=== PATIENT | female | born 1935 | race Caucasian/White ===

== ENCOUNTER 2019-04-18 19:42 | Inpatient (IN) | payer MEDICARE ==
[~2019-04-18] VITALS: Ht 167.6 cm; Wt 59.0 kg
[~2019-04-18 19:42] MED LIST: ASPIR 8181 MG PO; KOMBIGLYZE XR1 EACH PO; LEVOTHYROXINE25 MCG PO; LIPITOR10 MG PO; PROPAFENONE HC225 MG PO
--- NOTE | 2019-04-18 20:40 | NUR ---
DR. REAVES AND Inga RODRÍGUEZ RN NOTIFIED AND AWARE OF CRITICAL LAB VALUE; POTASSIUM 7.2.
--- NOTE | 2019-04-18 20:57 | Diagnostic Imaging Report ---
EXAMINATION: CHEST SINGLE (PORTABLE) History: Weakness. COMPARISON: 08/15/2013. FINDINGS: TUBES and LINES: None. LUNGS: Patient rotation on the film. Biapical pleural-parenchymal densities, right greater than left suggestive of scarring. No focal consolidation. PLEURA: No pleural effusion or pneumothorax. HEART AND MEDIASTINUM: The cardiomediastinal silhouette is unremarkable. There are atherosclerotic calcifications within the aorta. BONES AND SOFT TISSUES: No acute osseous lesion. Soft tissues are unremarkable. UPPER ABDOMEN: No free air under the diaphragm. IMPRESSION: No acute thoracic abnormality. Signed by: Dr. Nyasia Cooper M.D. on 04/18/2019 8:54 PM
[2019-04-18 22:08] LABS: BASOPHILS # (AUTO) 0.1 (0.0-0.1); BASOPHILS % 0.4 % (0.0-1.0); EOSINOPHILS % 0.1 % (0.0-6.0); HEMATOCRIT 38.8 % (34.2-44.1); HEMOGLOBIN 12.7 g/dL (12.0-16.0); LYMPHOCYTES # (AUTO) 1.5 (1.0-3.2); LYMPHOCYTES % 7.8 % (18.0-39.1); MEAN CORPUSCULAR HEMOGLOBIN 30.3 pg (28-32); MEAN CORPUSCULAR HGB CONC 32.7 g/dL (31-35); MEAN CORPUSCULAR VOLUME 92.6 fL (81-99); MONOCYTES # (AUTO) 1.5 (0.2-0.8); MONOCYTES % 7.7 % (4.4-11.3); NEUTROPHILS # (AUTO) 15.7 (2.1-6.9); NEUTROPHILS % 82.9 % (38.7-80.0); PLATELET COUNT 538 x10e3/uL (140-360); RED BLOOD COUNT 4.19 x10e6/uL (3.6-5.1); RED CELL DISTRIBUTION WIDTH 13.2 % (11.7-14.4)
[2019-04-18 22:26] LABS: ALBUMIN 2.1 g/dL (3.5-5.0); ALBUMIN/GLOBULIN RATIO 0.4 (0.8-2.0); ANION GAP 16.2 mmol/L (8-16); CALCIUM 9.7 mg/dL (8.4-10.2); CREATININE, SERUM 2.32 mg/dL (0.57-1.11)
[2019-04-18 22:32] LABS: CREATINE KINASE MB 4.5 ng/mL (0-5.0)
[2019-04-18 22:36] LABS: BILIRUBIN,URINE NEGATIVE (NEGATIVE); CLARITY,URINE CLOUDY (CLEAR); COLOR,URINE ORANGE (YELLOW); KETONES,URINE NEGATIVE (NEGATIVE); LEUKOCYTE ESTERASE ,URINE MODERATE (NEGATIVE); NITRITE,URINE POSITIVE (NEGATIVE); PROTEIN,URINE DIPSTICK 1+ (NEGATIVE); URINE UROBILINOGEN 0.2 mg/dL (0.2 - 1)
[2019-04-18 22:41] LABS: POTASSIUM 7.2 mmol/L (3.5-5.1)
[2019-04-18 22:52] LABS: BACTERIA,URINE MANY /HPF; EPITHELIAL CELLS,URINE FEW /LPF; WBC,URINE (MAN) >50 /HPF (0-5)
[2019-04-18] MEDS ORDERED: SODIUM BICARBONATE 8.4% INJ 50 ML SYR IV STA (22:55)
[2019-04-18] MEDS ORDERED: CALCIUM CHLORIDE 10% 1.36 MEQ/ML 10ML SYR IV STA (22:55)
[2019-04-18] MEDS ORDERED: SODIUM CHLORIDE 0.9% 1000ML 1,000 ML IV SCH ×3 (23:00→23:30)
[2019-04-18] MEDS ORDERED: SOD POLYSTYRENE SULFONATE SUSP 15 GM/60 ML BTL PO ONE (23:00)
[2019-04-18] MEDS ORDERED: ONDANSETRON HCL INJ 2MG/ML 2ML 2 MG/ML VIAL IV PRN (23:30)
--- OUTSIDE RECORDS SUMMARY | 2019-04-18 23:37 | XMS REPORT ---
Author Author [facility] Address Unknown Phone Unavailable Care Team Providers Care Oncology Radiation Physician Name Role Phone Vicky REAVES Unavailable Unavailable Problems This patient has no known problems. Allergies, Adverse Reactions, Alerts This patient has no known allergies or adverse reactions. Medications This patient has no known medications. Results Test Description Test Time Test Comments Text Results Atomic Results Result Comments CHEST SINGLE (PORTABLE) 2019-04-18 20:50:00 [place] [address] Patient Name: ROCHELLE EMERSON MR #: [id number] : 1935 Age/Sex: 83/F Req #: [id number] Adm Physician: Ordered by: PAULA REAVES MD Report #: [id number] Location: ER Room/Bed: Procedure: [id number] DX/CHEST SINGLE (PORTABLE) Exam Date: 04/18/19 Exam Time: 2039 REPORT STATUS: Signed EXAMINATION: CHEST SINGLE (PORTABLE) History: Weakness. COMPARISON: 08/15/2013. FINDINGS: TUBES and LINES: None. LUNGS: Patient rotation on the film. Biapical pleural-parenchymal densities, right greater than left suggestive of scarring. No focal consolidation. PLEURA: No pleural effusion or pneumothorax. HEART AND MEDIASTINUM: The cardiomediastinal silhouette is unremarkable. There are atherosclerotic calcifications within the aorta. BONES AND SOFT TISSUES: No acute osseous lesion. Soft tissues are unremarkable. UPPER ABDOMEN: No free air under the diaphragm. IMPRESSION: No acute thoracic abnormality. Signed by: Dr. Nyasia Lovell M.D. on 04/18/2019 8:54 PM Dictated By: MARI LOVELL MD, MD 53 Transcribed By: PATRICIA on 04/18/192053 COPY TO: PAULA REAVES MD
[2019-04-18] MEDS ORDERED: SODIUM CHLORIDE 0.9% 50ML 50 ML ONE (23:54)
[2019-04-19] VITALS (10 sets, daily range): BP systolic 88–147; BP diastolic 51–78
[2019-04-19] MEDS: CEFTRIAXONE SOD 1 GM/NS 50 ML 50 ML IV SCH ×2 (02:39→23:31)
[2019-04-19 06:21] LABS: BASOPHILS # (AUTO) 0.1 (0.0-0.1); BASOPHILS % 0.4 % (0.0-1.0); EOSINOPHILS % 0.1 % (0.0-6.0); HEMATOCRIT 33.9 % (34.2-44.1); HEMOGLOBIN 10.9 g/dL (12.0-16.0); LYMPHOCYTES # (AUTO) 1.3 (1.0-3.2); LYMPHOCYTES % 8.5 % (18.0-39.1); MEAN CORPUSCULAR HEMOGLOBIN 30.2 pg (28-32); MEAN CORPUSCULAR HGB CONC 32.2 g/dL (31-35); MEAN CORPUSCULAR VOLUME 93.9 fL (81-99); MONOCYTES # (AUTO) 1.4 (0.2-0.8); MONOCYTES % 8.8 % (4.4-11.3); NEUTROPHILS # (AUTO) 12.6 (2.1-6.9); NEUTROPHILS % 80.8 % (38.7-80.0); PLATELET COUNT 510 x10e3/uL (140-360); RED BLOOD COUNT 3.61 x10e6/uL (3.6-5.1); RED CELL DISTRIBUTION WIDTH 13.2 % (11.7-14.4)
[2019-04-19 06:57] LABS: ALBUMIN 1.9 g/dL (3.5-5.0); ALBUMIN/GLOBULIN RATIO 0.4 (0.8-2.0); CALCIUM 10.1 mg/dL (8.4-10.2); CREATININE, SERUM 1.68 mg/dL (0.57-1.11)
[2019-04-19] MEDS ORDERED: SODIUM CHLORIDE 0.45% 1,000 ML IV ONE ×2 (08:30→09:45)
[2019-04-19] MEDS ORDERED: LEVOTHYROXINE50 MCG PO (10:38)
[2019-04-19] MEDS ORDERED: PHENAZOPYRIDIN100 MG PO (10:38)
[2019-04-19] MEDS ORDERED: PROPAFENONE HC325 MG PO (10:39)
[2019-04-19] MEDS ORDERED: METFORMIN HCL500 M2 PO (10:40)
--- NOTE | 2019-04-19 15:37 | Consultation ---
DATE OF CONSULTATION: 04/19/2019 Renal Consultation REASON FOR CONSULTATION: Acute kidney injury and hyperkalemia. HISTORY OF PRESENT ILLNESS: An 83-year-old female with history of diabetes, and frequent urinary tract infections, who was brought to [facility] on 04/18/2019 for severe weakness to the point where she is unable to ambulate. The patient was doing well until approximately 3 months ago when she developed some frequent urinary tract infections. She was sent to see a urologist and underwent cystoscopy approximately 3 weeks ago. At that time, the patient was on Macrobid to prevent any further urinary tract infections. The patient approximately 2 weeks ago, developed weakness, decrease in appetite, dizziness, and she had difficulty walking. The patient's symptoms got so severe that she eventually presented to the emergency room. When she arrived, she was found to have acute kidney injury, pyuria, and hyperkalemia. The patient was started on IV fluids, received Kayexalate, started on antibiotics, admitted and Nephrology consultation was called. REVIEW OF SYSTEMS: A 12-point review of systems completed. All systems negative other than mentioned in the HPI. PAST MEDICAL HISTORY: 1. Diabetes. 2. Irregular heart beat. 3. Frequent urinary tract infections. PAST SURGICAL HISTORY: 1. Total abdominal hysterectomy. 2. Appendectomy. 3. Cystoscopy. SOCIAL HISTORY: No tobacco. No alcohol. No IV drugs. FAMILY HISTORY: No family history of kidney disease. ALLERGIES: DOXYCYCLINE, IODINE, AND INSULIN. CURRENT MEDICATIONS: See list. PHYSICAL EXAMINATION: VITAL SIGNS: Blood pressure 147/64, pulse 92, respiratory rate 20, and temperature 98. GENERAL: No apparent distress. HEENT: Oropharynx is clear. No scleral icterus. No peripheral edema. NECK: Supple. No elevation of jugular venous pressure. No lymphadenopathy. CHEST: Clear to auscultation anteriorly bilaterally. CARDIOVASCULAR: Regular rhythm. No murmurs or rubs. ABDOMEN: Soft. Positive bowel sounds. No tenderness. No rebound. EXTREMITIES: No edema. No clubbing. No cyanosis. SKIN: Warm. LABORATORY DATA: Sodium 130 from 123, potassium 5 down from 7.2, chloride 100, CO2 of 19, BUN 57 down from 70, creatinine 1.68 down from 2.32, calcium 10.1, and albumin 1.9. White count 15, hemoglobin 10.9, hematocrit 33.9, and platelets 510. Urine culture pending. Urinalysis greater than 50 WBCs, many bacteria. IMAGING: Chest x-ray clear. ASSESSMENT AND PLAN: 1. Acute kidney injury suspect secondary to volume depletion. Continue with IV fluids. 2. Hyperkalemia secondary to acute kidney injury, treated medically and improved. 3. Hyponatremia secondary to above. We will change to half NS as do not want to correct sodium too quickly. 4. Nausea, vomiting, and weight loss due to urinary tract infection and possibly side effects from Macrobid. 5. Volume depletion on exam. IV fluids as above. MD HERNESTO Shaikh/CAROL /[id number]
[2019-04-19] MEDS: PANTOPRAZOLE SOD 40 MG TABEC PO SCH (16:38)
[2019-04-19] MEDS: ACETAMINOPHEN 325 MG TAB PO PRN (16:38)
--- NOTE | 2019-04-19 16:47 | NUR ---
Nutrition Intervention Note RD Recommendation(s) for Physician: -Continue current diet per MD. -Recommend Glucerna BID. -Pt meets criteria for MODERATE protein calorie malnutrition. Plan of Care: RD following, monitoring for tolerance and adequacy. Glucerna BID. Nutrition reason for involvement: MST-3 RD Assessment 04/19: 83 YOF admitted for acute renal failure with PMH listed below. Pt was seen resting in bed with family at bedside. Pt reported she has not eaten much in the past 3 weeks and that her UBW is 114 lbs and she has lost about 10 lbs. Pt is currently 100 lbs suggesting she has had a 12% weight loss within 3 weeks which is significant. Pt reported she is allergic to green beans, and peanuts documented this within her EMR, pt reported no other allergies and stated she can self select from the menu, reported this to nurse. Also offered ONS to help provide her with additional calories and protein. Pt denied N/V, had a BM and denied chewing or swallowing as well. Per MD note- and weight loss due to urinary tract infection and possibly side effects from Macrobid. Will continue to monitor. Principal Problems/Diagnoses: Acute renal failure, dehydration PMH: diabetes, and frequent urinary tract infections, GI: Abd: flat; soft LBM: 04/19 Skin: now wound noted Labs: 04/19: Na 130, CO2 19, BUN 57, Creat 1.68, Gluc 259. Alk phos 217 Meds: abx, januvia, protonix Ht:66 in Wt:100 lb BMI:16.1 kg/m^2 IBW:130 Malnutrition Evaluation 04/19 The patient meets criteria for MODERATE protein-calorie malnutrition. Energy intake: <75% of estimated energy requirements for >1 month Weight loss: >5% in 1 month (Acute) Fat loss: Mild Muscle loss: Moderate Supporting Evidence: Fluid accumulation: unable to evaluate Functional Status: unable to evaluate Nutrition Prescription (Diet Order): ADA 1800 Estimated Nutritional Needs: Calories: 1102-6501(30-35 kcal/day) Weight used : CBW 45 kg Protein : 67-90(1.5-2 gram/protein/day) Weight used: CBW 45 kg Diet Adequacy: Not meeting calorie needs, Not meeting protein needs Diet Education Needs Assessment: Diet education indicated, but patient not appropriate for education at this time. Nutrition Care Level: mod Nutrition Diagnosis: Moderate protein calorie malnutrition related to medical condition as evidenced by reports of poor intake and weight loss. Goal: Patient will meet 75-100% of estimated needs by follow up Progress: N/A Interventions: -carb modified diet, Commercial beverage Monitoring/Evaluation: -Total energy intake, Total protein intake, Modified diet, Liquid supplement, Weight change Signed: Kezia Johnson RD, LD
[2019-04-19 16:49] LABS: ANION GAP 12.7 mmol/L (8-16); CALCIUM 8.7 mg/dL (8.4-10.2); CREATININE, SERUM 1.37 mg/dL (0.57-1.11); POTASSIUM 3.7 mmol/L (3.5-5.1)
--- NOTE | 2019-04-19 17:18 | NUR ---
CALL PLACED TO DR REID TO INFORM OF BMP RESULTS, NEW ORDERS RECEIVED
[2019-04-19] MEDS: SODIUM CHLORIDE 0.9% 1000ML 1,000 ML IV SCH (17:33)
[2019-04-19] MEDS: SITAGLIPTIN 100 MG TAB PO SCH (20:07)
--- NOTE | 2019-04-19 20:30 | NUR ---
Blood sugar:401 @this time. Notified to charge nurse Bere. Paged Xavier ,waiting for call back. Given po Januvia 50mg for BS as ordered. Patient had allergy with insulin. Will continue to monitor.
--- NOTE | 2019-04-19 22:30 | NUR ---
Patient had soft semi-liquid yellow BM, assisted to cleaned and changed diaper and pads. Patient tolerated well. Will continue to monitor.
--- NOTE | 2019-04-19 23:46 | NUR ---
Blood sugar:328 @this time. Notified to charge nurse Bere. Patient had allergy with insulin. Will continue to monitor.
[2019-04-20] MEDS: ACETAMINOPHEN 325 MG TAB PO PRN ×4 (01:14→22:25)
[2019-04-20] MEDS: SODIUM CHLORIDE 0.9% 1000ML 1,000 ML IV SCH ×2 (01:14→14:32)
--- NOTE | 2019-04-20 04:30 | NUR ---
Patient complained abdominal pain. Assisted to applied heating pads on her abdomen. Patient stated that " now I am feeling better". Will continue to monitor.
[2019-04-20 04:44] VITALS: BP 103/73
[2019-04-20 05:42] LABS: BASOPHILS # (AUTO) 0.1 (0.0-0.1); BASOPHILS % 0.4 % (0.0-1.0); EOSINOPHILS % 0.1 % (0.0-6.0); HEMATOCRIT 29.4 % (34.2-44.1); HEMOGLOBIN 9.6 g/dL (12.0-16.0); LYMPHOCYTES # (AUTO) 1.2 (1.0-3.2); LYMPHOCYTES % 6.1 % (18.0-39.1); MEAN CORPUSCULAR HEMOGLOBIN 30.5 pg (28-32); MEAN CORPUSCULAR HGB CONC 32.7 g/dL (31-35); MEAN CORPUSCULAR VOLUME 93.3 fL (81-99); MONOCYTES # (AUTO) 1.4 (0.2-0.8); NEUTROPHILS # (AUTO) 17.2 (2.1-6.9); NEUTROPHILS % 85.2 % (38.7-80.0); PLATELET COUNT 433 x10e3/uL (140-360); RED BLOOD COUNT 3.15 x10e6/uL (3.6-5.1); RED CELL DISTRIBUTION WIDTH 13.2 % (11.7-14.4)
[2019-04-20 06:05] LABS: ANION GAP 11.3 mmol/L (8-16); CALCIUM 8.3 mg/dL (8.4-10.2); CREATININE, SERUM 1.16 mg/dL (0.57-1.11); MAGNESIUM 1.6 MG/DL (1.3-2.1); POTASSIUM 3.3 mmol/L (3.5-5.1)
--- NOTE | 2019-04-20 07:04 | NUR ---
Report given to oncoming RODGER Hui.
[2019-04-20 07:41] VITALS: BP 103/73
[2019-04-20 07:58] LABS: BAND NEUTROPHILS % (MANUAL) 7 %; LYMPHOCYTES % (MANUAL) 1 % (19-48); MONOCYTES % (MANUAL) 2 % (3.4-9.0); NEUTROPHILS % (MANUAL) 90 % (40-74)
[2019-04-20 08:00] LABS: PLATELET ESTIMATE SLIGHTLY INCREASED; PLATELET MORPHOLOGY COMMENT MANY LARGE
[2019-04-20 08:01] LABS: RBC MORPHOLOGY COMMENT NORMAL
[2019-04-20] MEDS: SITAGLIPTIN 100 MG TAB PO SCH (08:14)
[2019-04-20 11:35] VITALS: BP 91/63
[2019-04-20] MEDS ORDERED: POTASSIUM CHLORIDE 10MEQ EA PO NR (12:30)
[2019-04-20] MEDS ORDERED: CEFEPIME HCL 1 GM VIAL IV SCH (12:45)
[2019-04-20] MEDS: CEFEPIME 1GM/NS 0.9% 50 ML 50 ML IV SCH ×2 (14:32→22:25)
[2019-04-20] MEDS ORDERED: DIAZEPAM 5 MG TAB PO PRN (14:45)
[2019-04-20 20:36] VITALS: BP 101/55
[2019-04-20 23:53] VITALS: BP 112/58
[2019-04-21] VITALS (7 sets, daily range): BP systolic 104–114; BP diastolic 49–58
[2019-04-21 06:13] LABS: BASOPHILS # (AUTO) 0.1 (0.0-0.1); BASOPHILS % 0.3 % (0.0-1.0); EOSINOPHILS # (AUTO) 0.1 (0.0-0.4); EOSINOPHILS % 0.2 % (0.0-6.0); HEMATOCRIT 30.9 % (34.2-44.1); HEMOGLOBIN 9.8 g/dL (12.0-16.0); LYMPHOCYTES # (AUTO) 1.3 (1.0-3.2); LYMPHOCYTES % 4.4 % (18.0-39.1); MEAN CORPUSCULAR HEMOGLOBIN 30.5 pg (28-32); MEAN CORPUSCULAR HGB CONC 31.7 g/dL (31-35); MEAN CORPUSCULAR VOLUME 96.3 fL (81-99); MONOCYTES # (AUTO) 1.8 (0.2-0.8); MONOCYTES % 5.9 % (4.4-11.3); NEUTROPHILS # (AUTO) 26.4 (2.1-6.9); NEUTROPHILS % 87.8 % (38.7-80.0); PLATELET COUNT 438 x10e3/uL (140-360); RED BLOOD COUNT 3.21 x10e6/uL (3.6-5.1); RED CELL DISTRIBUTION WIDTH 13.5 % (11.7-14.4)
[2019-04-21 06:38] LABS: ALBUMIN 1.5 g/dL (3.5-5.0); ALBUMIN/GLOBULIN RATIO 0.4 (0.8-2.0); ANION GAP 14.1 mmol/L (8-16); CALCIUM 8.5 mg/dL (8.4-10.2); CREATININE, SERUM 1.11 mg/dL (0.57-1.11); POTASSIUM 4.1 mmol/L (3.5-5.1)
[2019-04-21] MEDS: PANTOPRAZOLE SOD 40 MG TABEC PO SCH (07:46)
[2019-04-21] MEDS: SITAGLIPTIN 100 MG TAB PO SCH (08:04)
[2019-04-21] MEDS: SODIUM CHLORIDE 0.9% 1000ML 1,000 ML IV SCH ×2 (08:19→21:13)
[2019-04-21] MEDS: MEROPENEM 1GM 100 ML IV SCH ×2 (11:57→23:59)
[2019-04-21] MEDS: ACETAMINOPHEN 325 MG TAB PO PRN (20:32)
[2019-04-21] MEDS: DIAZEPAM 5 MG TAB PO PRN (20:32)
[2019-04-22 05:13] LABS: BASOPHILS # (AUTO) 0.1 (0.0-0.1); BASOPHILS % 0.3 % (0.0-1.0); EOSINOPHILS # (AUTO) 0.1 (0.0-0.4); EOSINOPHILS % 0.4 % (0.0-6.0); HEMOGLOBIN 9.6 g/dL (12.0-16.0); LYMPHOCYTES # (AUTO) 1.5 (1.0-3.2); LYMPHOCYTES % 4.8 % (18.0-39.1); MEAN CORPUSCULAR HEMOGLOBIN 30.3 pg (28-32); MEAN CORPUSCULAR VOLUME 94.6 fL (81-99); MONOCYTES # (AUTO) 1.9 (0.2-0.8); MONOCYTES % 5.9 % (4.4-11.3); NEUTROPHILS # (AUTO) 27.6 (2.1-6.9); NEUTROPHILS % 87.2 % (38.7-80.0); PLATELET COUNT 355 x10e3/uL (140-360); RED BLOOD COUNT 3.17 x10e6/uL (3.6-5.1); RED CELL DISTRIBUTION WIDTH 13.8 % (11.7-14.4)
[2019-04-22 05:44] LABS: ALBUMIN 1.4 g/dL (3.5-5.0); ALBUMIN/GLOBULIN RATIO 0.4 (0.8-2.0); CALCIUM 8.3 mg/dL (8.4-10.2); CREATININE, SERUM 1.07 mg/dL (0.57-1.11)
[2019-04-22 07:00] VITALS: BP 109/55
[2019-04-22 07:18] LABS: RBC MORPHOLOGY COMMENT NORMAL
[2019-04-22] MEDS ORDERED: ONDANSETRON HCL 4 MG ORAL DISINTEGRATING TAB PO PRN (08:30)
[2019-04-22] MEDS: PANTOPRAZOLE SOD 40 MG TABEC PO SCH (09:06)
[2019-04-22] MEDS: SITAGLIPTIN 100 MG TAB PO SCH (09:06)
[2019-04-22 12:00] VITALS: BP 105/60
[2019-04-22] MEDS: SODIUM CHLORIDE 0.9% 1000ML 1,000 ML IV SCH ×2 (12:10→22:04)
[2019-04-22] MEDS: ACETAMINOPHEN 325 MG TAB PO PRN (12:19)
[2019-04-22] MEDS: MEROPENEM 1GM 100 ML IV SCH (13:37)
--- NOTE | 2019-04-22 14:52 | NUR ---
Received order for LTAC eval and transfer once accepted. CM spoke to pt and pt's daughter Della at bedside. They stated that Dr. Concepcion spoke with them regarding need for LTAC already. They would like to stay in this area. Gave choice for [facility]. Signed letter placed in chart. Copy to pt's daughter. Left CM's business card for any additional questions/concerns. Pt's daughter Della would like to be notified once approved - [phone] (home), if unable to get ahold of her on that number, states to call her Elías at [phone]. Notified Mary Mckeon of referral. She will come by to picking crew supervisor clinicals.
[2019-04-22 16:23] VITALS: BP 108/62
[2019-04-22 20:00] VITALS: BP 113/51
[2019-04-22 21:09] VITALS: BP 113/51
[2019-04-22] MEDS: DIAZEPAM 5 MG TAB PO PRN (22:04)
[2019-04-23] VITALS: BP 117/52
--- NOTE | 2019-04-23 | NUR ---
BLOOD SUGAR CHECK 299MG/DL. INFORMED PATIENT THAT WE NEED TO MONITOR HER DIET MORE CLOSELY DUE TO SHE'S ASKING FOR APPLE JUICE. PATIENT STATED I WONT ASK FOR ANY APPLE JUICES, I'LL JUST STICK WITH WATER AND TEA. CALL LIGHT IN REACH. WILL CONTINUE TO MONITOR.
[2019-04-23] MEDS: MEROPENEM 1GM 100 ML IV SCH ×2 (00:35→12:54)
[2019-04-23] MEDS: ACETAMINOPHEN 325 MG TAB PO PRN (01:27)
[2019-04-23 05:28] VITALS: BP 106/53
[2019-04-23] MEDS: DIAZEPAM 5 MG TAB PO PRN ×2 (05:33→22:00)
--- NOTE | 2019-04-23 06:33 | NUR ---
CONTINUE RESTING, CALL LIGHT REMAIN IN REACH. WILL CONTINUE TO MONITOR.
--- NOTE | 2019-04-23 07:09 | NUR ---
REPORT GIVEN TO ONCOMING NURSE.
[2019-04-23 08:02] VITALS: BP 104/61
[2019-04-23] MEDS: SITAGLIPTIN 100 MG TAB PO SCH (08:14)
[2019-04-23] MEDS: PANTOPRAZOLE SOD 40 MG TABEC PO SCH (08:14)
[2019-04-23 09:00] VITALS: BP 104/61
[2019-04-23] MEDS: SODIUM CHLORIDE 0.9% 1000ML 1,000 ML IV SCH (17:13)
[2019-04-23 20:00] VITALS: BP 120/55
[2019-04-23 23:00] VITALS: BP 102/53
[2019-04-24] MEDS: MEROPENEM 1GM 100 ML IV SCH ×3 (00:55→23:47)
[2019-04-24 03:00] VITALS: BP 118/72
[2019-04-24 07:30] VITALS: BP 116/80
[2019-04-24 09:27] VITALS: BP 118/72
[2019-04-24] MEDS: PANTOPRAZOLE SOD 40 MG TABEC PO SCH (09:39)
[2019-04-24] MEDS: SITAGLIPTIN 100 MG TAB PO SCH (09:40)
[2019-04-24] MEDS: ACETAMINOPHEN 325 MG TAB PO PRN ×2 (09:40→22:49)
[2019-04-24] MEDS: DIAZEPAM 5 MG TAB PO PRN (11:10)
--- NOTE | 2019-04-24 13:32 | NUR ---
Awaiting approval to [facility]. after discussion with daughter back up plan is SNF. [facility] list of facilities given to daughter, she is leaning toward [facility] to stay with dr. watts's service
--- NOTE | 2019-04-24 15:39 | NUR ---
Nutrition Intervention Note RD Recommendation(s) for Physician: -Continue current diet per MD. -Recommend Glucerna BID. -Pt meets criteria for MODERATE protein calorie malnutrition. Plan of Care: RD following, monitoring for tolerance and adequacy. Glucerna BID. Nutrition reason for involvement: follow up RD Assessment 04/24: Pt discussed during am rounds, pending transfer to [place] today. Medical providers at bedside at time of attempted visits. Per RN pt eating well, no GI distress. Will monitor and continue to follow. 04/19: 83 YOF admitted for acute renal failure with PMH listed below. Pt was seen resting in bed with family at bedside. Pt reported she has not eaten much in the past 3 weeks and that her UBW is 114 lbs and she has lost about 10 lbs. Pt is currently 100 lbs suggesting she has had a 12% weight loss within 3 weeks which is significant. Pt reported she is allergic to green beans, and peanuts documented this within her EMR, pt reported no other allergies and stated she can self select from the menu, reported this to nurse. Also offered ONS to help provide her with additional calories and protein. Pt denied N/V, had a BM and denied chewing or swallowing as well. Per MD note- and weight loss due to urinary tract infection and possibly side effects from Macrobid. Will continue to monitor. Principal Problems/Diagnoses: Acute renal failure, dehydration PMH: diabetes, and frequent urinary tract infections, GI: Abd: flat; soft LBM: 04/24 Skin: stage I sacrum Labs: 04/23: Na 138, K 4.1, BUN 19, Cr 0.99, Gluc 94 04/19: Na 130, CO2 19, BUN 57, Creat 1.68, Gluc 259. Alk phos 217 Meds: abx, januvia, protonix, zofran Ht:66 in Wt:100 lb BMI:16.1 kg/m^2 IBW:130 Malnutrition Evaluation 04/19 The patient meets criteria for MODERATE protein-calorie malnutrition. Energy intake: <75% of estimated energy requirements for >1 month Weight loss: >5% in 1 month (Acute) Fat loss: Mild Muscle loss: Moderate Supporting Evidence: Fluid accumulation: unable to evaluate Functional Status: unable to evaluate Nutrition Prescription (Diet Order): ADA 1800 Estimated Nutritional Needs: Calories: 9432-2825(30-35 kcal/day) Weight used : CBW 45 kg Protein : 67-90(1.5-2 gram/protein/day) Weight used: CBW 45 kg Diet Adequacy: Not meeting calorie needs, Not meeting protein needs Diet Education Needs Assessment: Diet education indicated, but patient not appropriate for education at this time. Nutrition Care Level: mod Nutrition Diagnosis: Moderate protein calorie malnutrition related to medical condition as evidenced by reports of poor intake and weight loss. Goal: Patient will meet 75-100% of estimated needs by follow up Progress: Progressing Interventions: -carb modified diet, Commercial beverage Monitoring/Evaluation: -Total energy intake, Total protein intake, Modified diet, Liquid supplement, Weight change Signed: Jil Hicks RD, LD, [facility]
--- NOTE | 2019-04-24 16:30 | NUR ---
dr watts on unit, aware of lactic
--- NOTE | 2019-04-24 18:03 | NUR ---
ct pending dt alergy and labs. dr sepulveda on unit, attempting to contact dr costello to clarify order. awaiting further instructions from
[2019-04-24 19:28] LABS: ANION GAP 10.4 mmol/L (8-16); CALCIUM 8.2 mg/dL (8.4-10.2); CREATININE, SERUM 1.2 mg/dL (0.57-1.11); POTASSIUM 4.4 mmol/L (3.5-5.1)
--- NOTE | 2019-04-24 19:31 | NUR ---
Paged to Dr Lucas to notified labs and ordered, waiting for MD'S call back at this time.
[2019-04-24 19:35] VITALS: BP 97/64
[2019-04-24 20:00] VITALS: BP 97/64
--- NOTE | 2019-04-24 20:45 | History and Physical ---
REASON FOR CONSULTATION: Urinary tract infection. HISTORY OF PRESENT ILLNESS: This patient is a very pleasant 83-year-old white female, who has history of diabetes mellitus, arrhythmia, coronary artery disease, recurrent urinary tract infection, total abdominal hysterectomy, appendectomy, cystoscopy. Apparently, she has been having recurrent urinary tract infection and she has been seen by several urologist. She was recently seen by [facility], Urology, Dr. Perez, who had a cystoscopy. She also had a CAT scan, but after that she was not doing well. Apparently, she was very weak, she is having urgency and frequency. The patient's family felt she need to return to the hospital because she was too weak. The patient is being admitted. The patient was currently lying in bed comfortably. She said that she does have suprapubic discomfort. PAST MEDICAL HISTORY: Diabetes mellitus, arrhythmia, and urinary tract infection. PAST SURGICAL HISTORY: Hysterectomy, appendectomy, and cystoscopy. ALLERGIES: DOXYCYCLINE. SOCIAL HISTORY: There is no smoking, drug abuse, or alcohol abuse. FAMILY HISTORY: Noncontributory. REVIEW OF SYSTEMS: HEENT: Negative. PULMONARY: There is no shortness of breath or cough, but she does have urgency and frequency, and suprapubic discomfort. She does have chronic aches and pain in her joint, but other symptoms are within normal limit. LABORATORY DATA: Reviewed. The patient grew Klebsiella pneumonia, ESBL, which was sensitive to gentamicin and imipenem. Her white count when she first came was 18.9, today it is 31.1. Hemoglobin 9.6, her platelet 355. Her sodium 132, potassium 4.2. Creatinine of 1.0, which is down from 1.6. The patient did have a chest x-ray, which showed no acute findings. MEDICATIONS: She is on meropenem, Tylenol, and diazepam. PHYSICAL EXAMINATION: GENERAL: She is currently alert, oriented, does not seem to be in acute distress. VITAL SIGNS: Stable, currently afebrile. Temperature 96.9, heart rate of 66, respiration 20, and blood pressure of 120/55. HEENT: She is not icteric. NECK: Supple. CHEST: Clear. HEART: S1, S2. No murmurs. ABDOMEN: Soft. Bowel sounds present. No tenderness. No hepatosplenomegaly. EXTREMITIES: No edema. SKIN: There is no rash. IMPRESSION: 1. Leukocytosis, it is getting progressively worse. 2. Sepsis, secondary to urinary tract infection, I would recommend to obtain CT of the pelvis. I would also recheck CBC, Chem panel, sedimentation rate, C-reactive protein. 3. Urinary tract infection with extended spectrum beta-lactamase. Agree with meropenem. 4. Debility. We will follow with you. Thank you for asking me to see this patient. MD YOEL Higuera/CAROL /[id number]
[2019-04-24] MEDS ORDERED: VANCOMYCIN 1GM/NS 250 ML 250 ML IV SCH (21:00)
--- NOTE | 2019-04-24 21:15 | NUR ---
Got call back from Dr. Shayy MD ordered IV vancomycin 1mg q24h and CT abdomen with oral contrast ordered at this time/
--- NOTE | 2019-04-24 23:11 | NUR ---
Patient off the unit for CT scan at this time.
[2019-04-24 23:30] VITALS: BP 126/79
[2019-04-25] VITALS (8 sets, daily range): BP systolic 114–130; BP diastolic 56–65
[2019-04-25] MEDS: DIAZEPAM 5 MG TAB PO PRN ×2 (00:08→13:45)
--- NOTE | 2019-04-25 00:32 | Diagnostic Imaging Report ---
EXAM: CT Abdomen and Pelvis WITHOUT contrast INDICATION: Sepsis. Acute renal failure. COMPARISON: None. TECHNIQUE: Abdomen and pelvis were scanned utilizing a multidetector helical scanner from the lung base to the pubic symphysis without administration of IV contrast. Absence of intravenous contrast decreases sensitivity for detection of focal lesions and vascular pathology. Coronal and sagittal reformations were obtained. Routine protocol was performed. IV CONTRAST: None. ORAL CONTRAST: 900 cc of Redicat. RADIATION DOSE: Total DLP: 252.25 mGy*cm Estimated effective dose: (DLP x 0.015 x size factor) mSv COMPLICATIONS: None FINDINGS: LINES and TUBES: None. LOWER THORAX: Bibasilar atelectasis and senescent fibrosis. 2 mm calcified nodule in the right middle lobe posterolaterally on image 1. Lingular scarring. Coronary artery calcifications. Bilateral small pleural effusions. HEPATOBILIARY: The liver is mildly diffuse hypodense compared to the spleen, consistent with diffuse hepatic diffuse hepatic steatosis. No focal hepatic lesions. No biliary ductal dilation. GALLBLADDER: No radio-opaque stones or sludge. No wall thickening. SPLEEN: No splenomegaly. PANCREAS: No focal masses or ductal dilatation. ADRENALS: No adrenal nodules KIDNEYS/URETERS: Mild bilateral hydroureteronephrosis. There is air within the bilateral renal calyceal system, left greater than right, as well as within the left ureter. No stones. GI TRACT: No abnormal distention, wall thickening, or evidence of bowel obstruction. There are diverticula within the colon without evidence of diverticulitis. Appendix is nonvisualized. PELVIC ORGANS/BLADDER: Moderately distended, with asymmetric wall. Focal wall thickening of the anterior urinary bladder up to 2.8 cm in AP dimension as seen on sagittal images 68, and 1.8 cm posteriorly also on image 68.. There is air within the nondependent urinary bladder, which may be related to recent instrumentation. The Uterus is absent. LYMPH NODES: No lymphadenopathy. VESSELS: There is moderate atherosclerotic disease in the aorta and major arterial branches. PERITONEUM / RETROPERITONEUM: No free air or fluid. BONES: Compression fracture deformity of L2 with retropulsion of posterior superior endplate into the spinal canal. Schmorl node in superior endplate of T11 with mild loss of vertebral body height. SOFT TISSUES: Diffuse subcutaneous edema. IMPRESSION: 1. Multifocal asymmetric wall thickening of the urinary bladder concerning for neoplasm. 2. Mild bilateral hydroureteronephrosis with air within the collecting system bilaterally, left greater than right which may be related to recent instrumentation. Recommend urology consultation for possible endoscopic evaluation. 3. Bilateral small pleural effusions. Signed by: Dr. Nyasia Cooper M.D. on 04/25/2019 12:28 AM
--- NOTE | 2019-04-25 04:46 | NUR ---
Patient had moderate semi-liquid BM. Assisted to cleaned and changed diaper/pads/gown. Will continue to monitor.
[2019-04-25 05:31] LABS: BASOPHILS % 0.3 % (0.0-1.0); EOSINOPHILS # (AUTO) 0.2 (0.0-0.4); EOSINOPHILS % 1.2 % (0.0-6.0); HEMATOCRIT 26.5 % (34.2-44.1); HEMOGLOBIN 8.7 g/dL (12.0-16.0); LYMPHOCYTES # (AUTO) 1.6 (1.0-3.2); LYMPHOCYTES % 10.8 % (18.0-39.1); MEAN CORPUSCULAR HEMOGLOBIN 30.2 pg (28-32); MEAN CORPUSCULAR HGB CONC 32.8 g/dL (31-35); MONOCYTES # (AUTO) 1.5 (0.2-0.8); MONOCYTES % 9.9 % (4.4-11.3); NEUTROPHILS # (AUTO) 11.4 (2.1-6.9); NEUTROPHILS % 76.9 % (38.7-80.0); PLATELET COUNT 306 x10e3/uL (140-360); RED BLOOD COUNT 2.88 x10e6/uL (3.6-5.1); RED CELL DISTRIBUTION WIDTH 14.1 % (11.7-14.4)
[2019-04-25 05:48] LABS: ANION GAP 12.2 mmol/L (8-16); CALCIUM 7.7 mg/dL (8.4-10.2); CREATININE, SERUM 1.03 mg/dL (0.57-1.11); POTASSIUM 4.2 mmol/L (3.5-5.1)
--- NOTE | 2019-04-25 06:10 | NUR ---
Patient had large semi-liquid BM, assisted to cleaned and changed diaper/pads at this time. Started new IV on her right AC 20G. Will continue to monitor.
[2019-04-25] MEDS: PANTOPRAZOLE SOD 40 MG TABEC PO SCH (08:01)
[2019-04-25] MEDS: SITAGLIPTIN 100 MG TAB PO SCH (08:01)
[2019-04-25] MEDS: SODIUM BICARBONATE 650 MG TAB PO SCH (09:41)
--- NOTE | 2019-04-25 10:29 | Diagnostic Imaging Report ---
Chest, 2 views, 04/25/2019. History: Shortness of breath. Comparison: CT abdomen 04/24/2019. Findings: The cardiomediastinal silhouette and pulmonary vasculature are within normal limits. There is biapical pleural thickening and upper lobe scarring. Linear opacities are present at the bases with minimal blunting of the costophrenic sulci. There are no acute osseous or soft tissue abnormalities. Impression: Bilateral upper lobe scarring and bibasilar atelectasis with small bilateral pleural effusions. Signed by: Mahesh Tuttle on 04/25/2019 10:25 AM
[2019-04-25] MEDS: MEROPENEM 1GM 100 ML IV SCH ×2 (12:29→23:39)
[2019-04-25] MEDS: ACETAMINOPHEN 325 MG TAB PO PRN ×2 (13:45→20:38)
--- NOTE | 2019-04-25 14:22 | NUR ---
Mary with [facility] notifies that patient has been denied by insurance company for LTAC. Melody states she has notified attending MD. Discussed earlier in rounds, patient has a new urology consult due to findings on CT scan and labs. mejia placed. DC plan uncertain at this time.
[2019-04-25 14:31] LABS: CLARITY,URINE TURBID (CLEAR); COLOR,URINE BROWN (YELLOW)
[2019-04-25 14:32] LABS: LEUKOCYTE ESTERASE ,URINE 2+ (NEGATIVE); NITRITE,URINE NEGATIVE (NEGATIVE); PROTEIN,URINE DIPSTICK 2+ (NEGATIVE); URINE UROBILINOGEN 1 mg/dL (0.2 - 1)
[2019-04-25 14:33] LABS: BILIRUBIN,URINE 1+ (NEGATIVE); KETONES,URINE TRACE (NEGATIVE); WBC,URINE (MAN) >50 /HPF (0-5)
[2019-04-25 14:34] LABS: BACTERIA,URINE PRESENT /HPF
[2019-04-26] VITALS (7 sets, daily range): BP systolic 96–133; BP diastolic 54–75
--- NOTE | 2019-04-26 00:49 | NUR ---
Report given to RODGER Gtz. Patient transferred to 114 (med-surg) at 0038 by bed with help of RODGER Pritchard. Denied pain and no SOB. V/S WNL.
[2019-04-26] MEDS: DIAZEPAM 5 MG TAB PO PRN ×2 (02:01→09:15)
--- NOTE | 2019-04-26 03:59 | Consultation ---
DATE OF CONSULTATION: 04/25/2019 Urology Consultation REASON FOR CONSULTATION: Urinary tract infections and hydronephrosis. HISTORY OF PRESENT ILLNESS: Elke Goff is an 83-year-old woman with recurrent urinary tract infections. The patient was evaluated by a urogynecologist, Dr. Juan Daniel Gonzalez at [facility], where she underwent what sounds like cystoscopic examination in the office and the patient has continued to have recurrent urinary tract infections. Urological consultation was sought. The patient denies any hematuria. She reports that her dysuria has improved. PAST MEDICAL AND SURGICAL HISTORY: 1. Status post total abdominal hysterectomy. 2. Status post appendectomy. 3. Status post bilateral cataract surgery. 4. Diabetes mellitus. 5. Coronary arrhythmia. ALLERGIES: PLEASE REFER TO THE HOSPITAL CHART FOR THE PATIENT'S NUMEROUS ALLERGIES. CURRENT MEDICATIONS: Please refer to the MAR. SOCIAL HISTORY: The patient denies smoking or ethanol drug use. 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 FAMILY HISTORY: Noncontributory to the active urological problems. REVIEW OF SYSTEMS: Discussed as above in the history of present illness and past medical history, otherwise negative for all systems. PHYSICAL EXAMINATION: GENERAL: Very pleasant 83-year-old woman lying in bed, in no apparent distress. Currently, she is afebrile. VITAL SIGNS: Currently stable. ABDOMEN: Soft, nondistended, and nontender without costovertebral angle tenderness. Kidneys not palpable without hepatosplenomegaly. For the remaining physical examination systems please refer to the admission history and physical and chart as well as business solutions consultant's reports on the chart. LABORATORY STUDIES: CT scan of the abdomen and pelvis reveals mild bilateral hydroureteronephrosis and there is air with bilateral renal calyceal systems, left greater than right, as well as within the left ureter. Bladder is moderately distended on the CT, focal wall thickening anteriorly. There is also a compression fracture deformity of L2 with retropulsion of the posterior superior endplate into the spinal canal. Urine culture from April 18, which is the day of admission shows ESBL, urinary tract infection. White blood cell count is 4780, hemoglobin 8.7, and platelets are normal at 306,000. The patient's creatinine is 1.03, it was elevated to 2.32 upon admission. She also had hyperkalemia and hyponatremia upon admission and these findings have improved, but she still has hypocalcemia. Urinalysis is significant for 11 to 20 rbc's upon admission. Followup urinalysis showed no rbc's, but with persistent wbc's and bacteria present. ASSESSMENT: 1. Complicated recurrent urinary tract infections. 2. Dysuria. 3. Bilateral hydroureteronephrosis. 4. Possible neurogenic bladder due to spinal abnormalities present noted on CT. 5. Leukocytosis. 6. Anemia. 7. Hyponatremia. 8. Hyperkalemia. 9. Hypocalcemia. 10. Acute renal failure that is improved. 11. Microhematuria. PLAN: 1. I defer the electrolyte abnormalities to the renal service on the case. 2. I defer the choice of antibiotics, Infectious Disease business solutions consultant on the case. 3. I defer the hematological abnormalities to the admitting physician. 4. I asked the nurses to place a Prather catheter and I asked the patient to allow this, this is due to the fact that she has bilateral hydroureteronephrosis with the air and gas ascending into both upper collecting systems consistent with gas producing bacterial organisms. We need to maximally drain the patient's collecting system in light of the fact that she probably has a neurogenic bladder and may very well have a vesicoureteral reflux. 5. Once the patient's urinary tract infection has been controlled, cystoscopy and retrograde ureteral pyelograms, which certainly be indicated. 6. Ongoing urological followup and evaluation including urodynamic study are necessary. 7. I do not recommend that the patient followup with the previously seen urogynecologist for these complex urological issues. Thank you much for involving us in the care of your patient. We will be happy to follow along with you as well as an outpatient. Ishmael MD Leo OH/MODL /[id number] cc: To Solano DO
[2019-04-26] MEDS: ACETAMINOPHEN 325 MG TAB PO PRN (04:25)
[2019-04-26 07:38] LABS: ANION GAP 12.6 mmol/L (8-16); CALCIUM 7.9 mg/dL (8.4-10.2); CREATININE, SERUM 1.21 mg/dL (0.57-1.11); POTASSIUM 4.6 mmol/L (3.5-5.1)
[2019-04-26] MEDS: PANTOPRAZOLE SOD 40 MG TABEC PO SCH (08:43)
[2019-04-26] MEDS: SODIUM BICARBONATE 650 MG TAB PO SCH (08:43)
[2019-04-26] MEDS: SITAGLIPTIN 100 MG TAB PO SCH (08:43)
[2019-04-26] MEDS ORDERED: FUROSEMIDE INJ 10 MG/ML 2 ML VIAL IV ONE (09:40)
--- NOTE | 2019-04-26 10:30 | NUR ---
c/o abdominal pain. Simple irrigation provided. 1100 cc brown , pus like urine noted, small amount of blood noted. Jarod GONZALEZ aware. Dr.Hampel Beckham notified
--- NOTE | 2019-04-26 12:00 | NUR ---
Per Mary with [facility], Dr. Concepcion will appeal LTAC denial. She will submit everything today.
[2019-04-26] MEDS: MEROPENEM 1GM 100 ML IV SCH (12:30)
[2019-04-26] MEDS ORDERED: SODIUM CHLORIDE 0.9% 250ML 250 ML ONE (12:30)
--- NOTE | 2019-04-26 14:24 | NUR ---
Simple irrigation provided as ordered
--- NOTE | 2019-04-26 17:51 | NUR ---
simple irrigation provided as ordered
--- NOTE | 2019-04-26 19:13 | NUR ---
Report given to oncoming nurse of patient's status. Resting in bed with eyes closed. Arousable to verbal stimuli. Respirations even and unlabored. Side railsx2, call light within reach, bed alarm on.
[2019-04-27] VITALS (7 sets, daily range): BP systolic 86–110; BP diastolic 46–60
[2019-04-27] MEDS: MEROPENEM 1GM 100 ML IV SCH ×3 (00:44→23:34)
[2019-04-27] MEDS: DIAZEPAM 5 MG TAB PO PRN (01:27)
[2019-04-27] MEDS: PANTOPRAZOLE SOD 40 MG TABEC PO SCH (07:52)
[2019-04-27] MEDS: SODIUM BICARBONATE 650 MG TAB PO SCH (09:00)
[2019-04-27] MEDS: SITAGLIPTIN 100 MG TAB PO SCH (09:00)
--- NOTE | 2019-04-27 09:00 | NUR ---
The pt. is awake and alert and reports that she feels better today than she has in a while. She is maintained in contact isolation for esbl in the urine.
--- NOTE | 2019-04-27 18:07 | Progress Note ---
DATE: SUBJECTIVE: Ms. Goff is currently lying in bed comfortably. Does not seem to be in acute distress. PHYSICAL EXAMINATION: GENERAL: She is currently alert. VITAL SIGNS: Stable, afebrile. HEENT: She is not icteric. NECK: Supple. CHEST: Few crackles bilateral in the bases. COR: S1, S2. No murmur. ABDOMEN: Soft. Bowel sounds present. No tenderness. EXTREMITIES: No edema. SKIN: No rash. IMPRESSION: 1. Urinary tract infection with Klebsiella extended spectrum beta-lactamase. Continue meropenem for 14 days as ordered. 2. History of diabetes mellitus. 3. History of arrhythmia. 4. History of hysterectomy. 5. History of appendectomy. 6. Debility. 7. Leukocytosis is getting better. Her white count is coming down to 14.7. 8. Anemia of chronic disease. 9. Recheck CBC. Recheck Chem panel. We will follow with you. MD YOEL Higuera/CAROL /[id number]
[2019-04-27] MEDS: ACETAMINOPHEN 325 MG TAB PO PRN (23:34)
[2019-04-28] VITALS (10 sets, daily range): BP systolic 88–116; BP diastolic 48–57
--- NOTE | 2019-04-28 08:00 | NUR ---
Simple irrigation done as ordered
[2019-04-28] MEDS: PANTOPRAZOLE SOD 40 MG TABEC PO SCH (08:31)
[2019-04-28] MEDS: SITAGLIPTIN 100 MG TAB PO SCH (08:31)
[2019-04-28] MEDS: SODIUM BICARBONATE 650 MG TAB PO SCH (08:32)
[2019-04-28] MEDS: ACETAMINOPHEN 325 MG TAB PO PRN ×2 (13:50→22:03)
--- NOTE | 2019-04-28 15:20 | NUR ---
BP 88/52. Paged to notify of patient's status.
--- NOTE | 2019-04-28 16:05 | NUR ---
Visit made by the Spiritual Care Department Pastoral Visitor, Dayron Lucia. PV provided pastoral presence, hospitality, and supportive listening. Pastoral Visitor informed pt/family of the scope of Private Duty Nurse Services and availability. AGUILA DONNELLY Procedures Analyst Spiritual Care Department O: [phone] Pager: [phone] ([phone] calling from)
[2019-04-28] MEDS ORDERED: SODIUM CHLORIDE 0.9% 1000ML 500 ML IV SCH (16:15)
--- NOTE | 2019-04-28 16:15 | NUR ---
aware of BP. Orders for Bolus NS 500cc received
--- NOTE | 2019-04-28 17:36 | NUR ---
Manual BP taken. BP 116/52
--- NOTE | 2019-04-28 18:39 | NUR ---
Resting in bed, side rails upx2, call light within reach, bed alarm on. No s/s of acute distress noted. Report to be given to oncoming nurse of patient's status.
[2019-04-28] MEDS ORDERED: DIAZEPAM 5 MG TAB PO PRN (22:15)
[2019-04-29] VITALS (8 sets, daily range): BP systolic 88–105; BP diastolic 50–59
[2019-04-29 06:04] LABS: BASOPHILS % 0.3 % (0.0-1.0); EOSINOPHILS # (AUTO) 0.1 (0.0-0.4); EOSINOPHILS % 0.8 % (0.0-6.0); HEMATOCRIT 25.9 % (34.2-44.1); HEMOGLOBIN 8.3 g/dL (12.0-16.0); LYMPHOCYTES # (AUTO) 1.3 (1.0-3.2); LYMPHOCYTES % 10.7 % (18.0-39.1); MEAN CORPUSCULAR HEMOGLOBIN 30.1 pg (28-32); MEAN CORPUSCULAR VOLUME 93.8 fL (81-99); MONOCYTES # (AUTO) 0.8 (0.2-0.8); MONOCYTES % 6.7 % (4.4-11.3); NEUTROPHILS # (AUTO) 9.5 (2.1-6.9); NEUTROPHILS % 80.6 % (38.7-80.0); PLATELET COUNT 252 x10e3/uL (140-360); RED BLOOD COUNT 2.76 x10e6/uL (3.6-5.1)
[2019-04-29 06:06] LABS: ALANINE AMINOTRANSFERASE 47 IU/L (0-55); ALBUMIN 1.2 g/dL (3.5-5.0); ALBUMIN/GLOBULIN RATIO 0.3 (0.8-2.0); ALKALINE PHOSPHATASE 321 IU/L (40-150); ANION GAP 10.7 mmol/L (8-16); BLOOD UREA NITROGEN 14 mg/dL (7-26); BUN/CREATININE RATIO 18 (6-25); CALCIUM 7.6 mg/dL (8.4-10.2); CARBON DIOXIDE 27 mmol/L (22-29); CHLORIDE 105 mmol/L (98-107); CREATININE, SERUM 0.78 mg/dL (0.57-1.11); EST GLOMERULAR FILTRATION RATE > 60 ML/MIN (60-); GLUCOSE 167 mg/dL (74-118); POTASSIUM 3.7 mmol/L (3.5-5.1); SODIUM 139 mmol/L (136-145)
--- NOTE | 2019-04-29 07:00 | NUR ---
RCD PT AT BED PT IS ALERT AND ORIENTED PT RESTING ON BED NO SIGNS OF ANY DISTRESS NOTED HANCOCK DRAINING BY GRAVITY BED LOW AND LOCKED CALL LIGHT IN REACH
[2019-04-29] MEDS: PANTOPRAZOLE SOD 40 MG TABEC PO SCH (07:30)
--- NOTE | 2019-04-29 08:40 | NUR ---
Mary with [facility] requesting updated clinical for appeal. progress notes and PT notes faxed to [facility] at [phone].
[2019-04-29] MEDS: SODIUM BICARBONATE 650 MG TAB PO SCH (08:55)
[2019-04-29] MEDS: SITAGLIPTIN 100 MG TAB PO SCH (08:55)
[2019-04-29] MEDS: MEROPENEM 1GM 100 ML IV SCH (12:00)
--- NOTE | 2019-04-29 13:10 | NUR ---
REMOVED HANCOCK BY ORDER
--- NOTE | 2019-04-29 13:15 | NUR ---
INSERT 16 FR HANCOCK BY ORDER AND PUSH 10 ML SALINE HANCOCK DRAINING GOOD
[2019-04-29] MEDS: ACETAMINOPHEN 325 MG TAB PO PRN (13:24)
--- NOTE | 2019-04-29 14:38 | NUR ---
Nutrition Intervention Note RD Recommendation(s) for Physician (04/29): -Continue current diet per MD. -Recommend Ensure Compact BID. -Recommend to re weight the pt to ensure the pts weight is recorded accurately. -Monitor BS per MD. -Pt meets criteria for MODERATE protein calorie malnutrition. Plan of Care: RD following, monitoring for tolerance and adequacy. Ensure Compact BID. Nutrition reason for involvement: follow up RD Assessment 04/29: Follow up: Pt was seen resting in bed, pt reports her appetite has been good and she denied N/V/C/D/chewing or swallowing issues. Pt reported They are treating me well here and had no other questions or complaints. Possible d/c to [place]. Prather was removed today. Pt is now on 1 liter fluid restriction, will recommend Ensure Compact instead of Glucerna supplement, as of now the pt is not on any ONS. Pt is consuming 50-75% of her meals per FS. Weights recorded in EMR appear to be inaccurate, recommend to re weigh the pt to ensure the correct weight is recorded. Will continue to monitor. 04/24: Pt discussed during am rounds, pending transfer to [place] today. Medical providers at bedside at time of attempted visits. Per RN pt eating well, no GI distress. Will monitor and continue to follow. 04/19: 83 YOF admitted for acute renal failure with PMH listed below. Pt was seen resting in bed with family at bedside. Pt reported she has not eaten much in the past 3 weeks and that her UBW is 114 lbs and she has lost about 10 lbs. Pt is currently 100 lbs suggesting she has had a 12% weight loss within 3 weeks which is significant. Pt reported she is allergic to green beans, and peanuts documented this within her EMR, pt reported no other allergies and stated she can self select from the menu, reported this to nurse. Also offered ONS to help provide her with additional calories and protein. Pt denied N/V, had a BM and denied chewing or swallowing as well. Per MD note- and weight loss due to urinary tract infection and possibly side effects from Macrobid. Will continue to monitor. Principal Problems/Diagnoses: Acute renal failure, dehydration PMH: diabetes, and frequent urinary tract infections, GI: Abd: soft; non-tender, round, flatus: present LBM: 04/25 per EMR Skin: sacrum wound, not pressure ulcer related per EMR Labs: 04/29: Gluc 167, POC GM 127-201, Ca 7.6, Alk phos 321, AST 70 04/23: Na 138, K 4.1, BUN 19, Cr 0.99, Gluc 94 04/19: Na 130, CO2 19, BUN 57, Creat 1.68, Gluc 259. Alk phos 217 Meds: abx, januvia, protonix, zofran, abx Ht: 66 in Wt: 100 lb 04/29: 130 lbs BMI: 16.1 kg/m^2 04/29: BMI: 21.0 kg/m^2 IBW: 130 Malnutrition Evaluation 04/19 The patient meets criteria for MODERATE protein-calorie malnutrition. Energy intake: <75% of estimated energy requirements for >1 month Weight loss: >5% in 1 month (Acute) Fat loss: Mild Muscle loss: Moderate Supporting Evidence: Fluid accumulation: unable to evaluate Functional Status: unable to evaluate Nutrition Prescription (Diet Order): ADA 1800 Estimated Nutritional Needs: Calories: 7624-2147 (25-35 kcal/day) Weight used : CBW 59 kg Protein : 86-118 (1.5-2 gram/protein/day) Weight used: CBW 59 kg Diet Adequacy: meeting calorie needs, meeting protein needs Diet Education Needs Assessment: Diet education indicated, but patient not appropriate for education at this time. Nutrition Care Level: mod Nutrition Diagnosis: Moderate protein calorie malnutrition related to medical condition as evidenced by reports of poor intake and weight loss. Goal: Patient will meet 75-100% of estimated needs by follow up Progress: Progressing Interventions: -carb modified diet, Commercial beverage Monitoring/Evaluation: -Total energy intake, Total protein intake, Modified diet, Liquid supplement, Weight change Signed: Kezia Johnson RD, PRAFUL Addendum: 04/29/19 at 1441 by Kezia Johnson DIET Per HT-notes report the pt must stay in strict adherence to ADA diet restrictions- pt appears to be meeting needs with food, recommend to NOT order ONS.
--- NOTE | 2019-04-29 15:27 | NUR ---
Per Mary with [facility], pt was denied LTAC after appeal. CM left message for Dr. Concepcion and asked for SNF order.
[2019-04-29] MEDS ORDERED: FUROSEMIDE 40 MG TAB PO ONE (17:00)
--- NOTE | 2019-04-29 18:18 | NUR ---
Received SNF order from Dr. Concepcion. Spoke to pt and her daughter at bedside and informed them of denial for LTAC. Pt's daughter stated they were looking at [facility] for SNF if LTAC was denied. Pt is agreeable. Choice letter signed and placed in chart. Copy placed in pt's transition of care folder. Referral was faxed to [facility] at [phone] / F [phone]. [address] [place] [address]
--- NOTE | 2019-04-29 18:42 | NUR ---
PT RESTING ON BED BEDSIDE REPORT GIVEN TO ONCOMING NURSE
--- NOTE | 2019-04-29 19:15 | NUR ---
PT RESTING ON BED BEDSIDE REPORT GIVEN TO ONCOMING NURSE
[2019-04-29] MEDS ORDERED: DIAZEPAM 5 MG TAB PO PRN (20:45)
[2019-04-30 00:17] VITALS: BP 106/53
[2019-04-30] MEDS: MEROPENEM 1GM 100 ML IV SCH ×2 (00:39→12:00)
[2019-04-30 05:26] VITALS: BP 103/51
--- NOTE | 2019-04-30 07:00 | NUR ---
RCD PT AT BED PT IS ALERT AND ORIENTED PT RESTING ON BED NO SIGNS OF ANY DISTRESS NOTED FAMILY AT BED SIDE HANCOCK DRAINING BY GRAVITY BED LOW AND LOCKED CALL LIGHT IN REACH
[2019-04-30] MEDS: PANTOPRAZOLE SOD 40 MG TABEC PO SCH (07:30)
[2019-04-30 08:46] VITALS: BP 100/60
[2019-04-30] MEDS: SITAGLIPTIN 100 MG TAB PO SCH (09:00)
[2019-04-30] MEDS ORDERED: SODIUM BICARBONATE 650 MG TAB PO SCH (09:00)
[2019-04-30 09:30] VITALS: BP 100/70
[2019-04-30 11:39] VITALS: BP 93/61
--- NOTE | 2019-04-30 14:00 | NUR ---
[facility] FACILITY DISCHARGE INFORMATION PATIENT HAS BEEN ACCEPTED TO: NAME: [facility] ADDRESS: [id number] ACCEPTING MD: Zackary WASHINGTON ROOM:[id number] NURSE CALL REPORT TO: [phone]
--- NOTE | 2019-04-30 15:05 | NUR ---
IMM explained to patient. Patient signed, copy placed in care transitions folder. Original to chart.
--- NOTE | 2019-04-30 15:18 | NUR ---
REPORT GIVEN TO RADHA RAMOS RN AND NOTIFIED UNIT SECRETORY TO CALL AMBULANCE
--- NOTE | 2019-04-30 15:30 | NUR ---
PAGED DR WASHINGTON AND NOTIFIED PT ACC[facility]PT[facility] BY [facility] GOT THE [facility]CHARGE ORDER
[2019-04-30 16:49] VITALS: BP 113/73
--- NOTE | 2019-04-30 16:51 | Progress Note ---
DATE: SUBJECTIVE: Ms. Goff remains in medical floor, but she is confused. No new complaint. REVIEW OF SYSTEMS: HEENT: Negative. PULMONARY: Negative. CARDIAC: Negative. PHYSICAL EXAMINATION: GENERAL: Alert, confused, does not seem to be in acute distress. VITAL SIGNS: Stable, afebrile. HEENT: Normocephalic. Does not appear icteric. NECK: Supple. No JVD. No lymphadenopathy. No thyromegaly. CHEST: Clear bilateral. HEART: S1 and S2. No S3, S4, or murmur. ABDOMEN: Soft. Bowel sounds present. No tenderness. EXTREMITIES: No edema. SKIN: No rash. IMPRESSION AND PLAN: Urinary tract infection with Klebsiella pneumoniae ESBL, finish 14 days of meropenem as ordered. Discharge plan as noted. History of dementia, appendectomy, bilateral cataract surgery, diabetes mellitus, and arrhythmia, all seem to be stable. Discussed with the medical team at length. We will follow. MD YOEL Higuera/CAROL /[id number]
--- NOTE | 2019-04-30 18:48 | NUR ---
PT RESTING ON BED BEDSIDE REPORT GIVEN TO ONCOMING NURSE
--- NOTE | 2019-04-30 19:40 | NUR ---
Ambulance picked patient up to take to [facility]. Daughter at the bedside and all belongings gathered by her. Patient in good spirts and stable condition.
== END 2019-04-30 19:57 | DRG 872 ==
LOC: ER 19:42 → ERHOLD 23:35 → ICU 04-19 02:04 → IMCU 04-19 08:36 → UNDODISIN 04-23 12:10 → MED/SURG2 04-26 01:01
DX: A41.89 Other specified sepsis (principal); N17.9 Acute kidney failure, unspecified; Z68.1 Body mass index [BMI] 19.9 or less, adult; N30.01 Acute cystitis with hematuria; E44.0 Moderate protein-calorie malnutrition; Z16.12 Extended spectrum beta lactamase (ESBL) resistance; N13.6 Pyonephrosis; E87.1 Hypo-osmolality and hyponatremia; G95.89 Other specified diseases of spinal cord; E87.2 Acidosis; N18.2 Chronic kidney disease, stage 2 (mild); E86.0 Dehydration; E87.5 Hyperkalemia; E03.9 Hypothyroidism, unspecified; Z87.440 Personal history of urinary (tract) infections; E78.5 Hyperlipidemia, unspecified; Z83.3 Family history of diabetes mellitus; Z82.49 Family history of ischemic heart disease and other diseases of the circulatory system; Z91.010 Allergy to peanuts; Z91.013 Allergy to seafood; Z88.7 Allergy status to serum and vaccine; Z88.8 Allergy status to other drugs, medicaments and biological substances; Z91.018 Allergy to other foods; I25.10 Atherosclerotic heart disease of native coronary artery without angina pectoris; R53.81 Other malaise; E11.22 Type 2 diabetes mellitus with diabetic chronic kidney disease; E83.51 Hypocalcemia; F03.90 Unspecified dementia, unspecified severity, without behavioral disturbance, psychotic disturbance, mood disturbance, and anxiety; Z66 Do not resuscitate; R19.7 Diarrhea, unspecified; Z79.84 Long term (current) use of oral hypoglycemic drugs
CPT/HCPCS: 36415; 51700; 71045; 71046; 74176; 80048; 80053; 81001; 82550; 82553; 82948; 83605; 83735; 84484; 85025; 87086; 87186; 87493; 93005; 97139; 99284; J0692; J0696; J1940; J3370; J7030; J7050

== ENCOUNTER → 2020-06-19 | Day surgery (SDC) | payer MEDICARE ==
[2020-06-16 15:01] LABS: BASOPHILS # (AUTO) 0.1 (0.0-0.1); BASOPHILS % 0.8 % (0.0-1.0); EOSINOPHILS # (AUTO) 0.2 (0.0-0.4); EOSINOPHILS % 2.5 % (0.0-6.0); HEMATOCRIT 36.9 % (34.2-44.1); HEMOGLOBIN 11.7 g/dL (12.0-16.0); LYMPHOCYTES # (AUTO) 2.3 (1.0-3.2); LYMPHOCYTES % 29.7 % (18.0-39.1); MEAN CORPUSCULAR HEMOGLOBIN 31.3 pg (28-32); MEAN CORPUSCULAR HGB CONC 31.7 g/dL (31-35); MEAN CORPUSCULAR VOLUME 98.7 fL (81-99); MONOCYTES # (AUTO) 0.7 (0.2-0.8); MONOCYTES % 9.4 % (4.4-11.3); NEUTROPHILS # (AUTO) 4.5 (2.1-6.9); NEUTROPHILS % 57.2 % (38.7-80.0); PLATELET COUNT 165 x10e3/uL (140-360); RED BLOOD COUNT 3.74 x10e6/uL (3.6-5.1); RED CELL DISTRIBUTION WIDTH 12.8 % (11.7-14.4)
[~2020-06-19] MED LIST changes: +FENTANYL CITRATE/PF 100MCG/2 ML INJ ONE; +HYOSCYAMINE 0.125 MG TAB ONE; +LEVOTHYROXINE50 MCG PO; +LIDOCAINE HCL 2% LOCAL INJ 5 ML SDV VIAL INJ ONE; +METFORMIN HCL500 M2 PO; +PHENAZOPYRIDIN100 MG PO; +PROPAFENONE HC325 MG PO; +PROPOFOL IV EMULSION 10 MG/ML 20 ML VIAL ONE; +TRADJENTA5 MG PO
--- NOTE | 2020-06-19 07:15 | NUR ---
SPIRITUAL CARE - Pre-Surgery Assessment: Pt in bed. Pt reported supportive attention from family and friends. Intervention: Provided pastoral presence, hospitality, and sympathetic listening. Acquainted pt with availability of scarifier operator while hospitalized. Outcome: Pt expressed appreciation for visit. No need for follow up indicated at this time. AGUILA Vázquez Spiritual Care Department O: [phone]
[2020-06-19 09:55] VITALS: BP 132/70
--- NOTE | 2020-06-19 10:28 | Operative Report ---
DATE OF PROCEDURE: 06/19/2020 SURGEON: Aba Concepcion MD PROCEDURE: Colonoscopy with polypectomy. INDICATIONS FOR COLONOSCOPY: Colorectal cancer screening, positive Cologuard test. MEDICATIONS: The patient was done under MAC, please see anesthesiologist's note. PROCEDURE IN DETAIL: With the patient in the left lateral decubitus position, a flexible fiberoptic Olympus colonoscope was inserted into the rectum with ease and advanced all the way to the cecum. An approximately 5 mm sessile polyp was removed per cold snare polypectomy from the cecum. One polyp was cold biopsied and one polyp was cold snared from the ascending colon. Transverse grossly appeared to be within normal limits. One polyp was cold snared from the descending colon. Diverticular disease was noted to involve the distal descending and the sigmoid colon. The rectum grossly appeared to be within normal limits. The scope was then retroflexed into the distal rectum and small internal hemorrhoids were noted, none of which was actively bleeding. The scope was then straightened out, it was subsequently withdrawn, and the patient tolerated the procedure well. IMPRESSION: 1. Cecal polyp, approximately 5 mm, sessile, removed per cold snare polypectomy. 2. Ascending colon polyps x2, one cold snared and one cold biopsied. 3. Descending colon polyp, cold snared. 4. Diverticulosis. 5. Internal hemorrhoids, none actively bleeding. PLAN: Follow up histology. Initiate high-fiber, low-fat diet. Initiate high-fiber supplement. Aba Concepcion MD [facility]/CAROL /[id number] cc: Ronald Concepcion MD
== END | disposition home or self-care (01) ==
LOC: OR 05:59
PROVIDERS: ATTEND Internal Medicine Gastroenterology
DX: R19.5 Other fecal abnormalities (principal); D12.0 Benign neoplasm of cecum; D12.2 Benign neoplasm of ascending colon; D12.4 Benign neoplasm of descending colon; K57.30 Diverticulosis of large intestine without perforation or abscess without bleeding; K64.8 Other hemorrhoids; E78.5 Hyperlipidemia, unspecified; E11.9 Type 2 diabetes mellitus without complications; B19.20 Unspecified viral hepatitis C without hepatic coma; Z88.8 Allergy status to other drugs, medicaments and biological substances; Z91.041 Radiographic dye allergy status; Z01.812 Encounter for preprocedural laboratory examination; Z20.828 Contact with and (suspected) exposure to other viral communicable diseases; Z87.01 Personal history of pneumonia (recurrent)
CPT/HCPCS: 36415 ×2; 45380; 45385; 82948; 85025; 88305; J2001; J2704; J3010; U0002; 45378; 45384

== ENCOUNTER 2021-01-11 14:24 | Emergency (ER) | payer OTHER, MEDICARE ==
[~2021-01-11] VITALS: Ht 160 cm; Wt 49.9 kg
[~2021-01-11 14:24] MED LIST changes: -FENTANYL CITRATE/PF 100MCG/2 ML INJ ONE; -HYOSCYAMINE 0.125 MG TAB ONE; -LIDOCAINE HCL 2% LOCAL INJ 5 ML SDV VIAL INJ ONE; -PROPOFOL IV EMULSION 10 MG/ML 20 ML VIAL ONE
[2021-01-11 16:04] LABS: BASOPHILS # (AUTO) 0.1 (0.0-0.1); BASOPHILS % 0.7 % (0.0-1.0); EOSINOPHILS # (AUTO) 0.3 (0.0-0.4); EOSINOPHILS % 3.9 % (0.0-6.0); HEMATOCRIT 34.3 % (34.2-44.1); HEMOGLOBIN 11.1 g/dL (12.0-16.0); LYMPHOCYTES # (AUTO) 1.9 (1.0-3.2); LYMPHOCYTES % 26.6 % (18.0-39.1); MEAN CORPUSCULAR HEMOGLOBIN 31.9 pg (28-32); MEAN CORPUSCULAR HGB CONC 32.4 g/dL (31-35); MEAN CORPUSCULAR VOLUME 98.6 fL (81-99); MONOCYTES # (AUTO) 0.8 (0.2-0.8); NEUTROPHILS # (AUTO) 4.2 (2.1-6.9); NEUTROPHILS % 57.4 % (38.7-80.0); PLATELET COUNT 142 x10e3/uL (140-360); RED BLOOD COUNT 3.48 x10e6/uL (3.6-5.1); RED CELL DISTRIBUTION WIDTH 13.2 % (11.7-14.4)
[2021-01-11 16:19] LABS: ALBUMIN 3.9 g/dL (3.5-5.0); ALBUMIN/GLOBULIN RATIO 1.1 (0.8-2.0); ANION GAP 11.2 mmol/L (8-16); CALCIUM 8.7 mg/dL (8.4-10.2); CREATININE, SERUM 1.28 mg/dL (0.57-1.11); POTASSIUM 4.2 mmol/L (3.5-5.1)
[2021-01-11] MEDS ORDERED: GLIMEPIRIDE1 MG (17:01)
[2021-01-11] MEDS ORDERED: ATORVASTATIN CA10 MG (17:01)
[2021-01-11] MEDS ORDERED: LEVOTHYROXINE25 MCG (17:01)
[2021-01-11] MEDS ORDERED: LEVOFLOXACIN500 MG (17:01)
== END 2021-01-11 18:33 | disposition other institution (70) ==
LOC: ER 14:40
DX: S06.5X0A Traumatic subdural hemorrhage without loss of consciousness, initial encounter (principal); S01.01XA Laceration without foreign body of scalp, initial encounter; M25.562 Pain in left knee; M25.561 Pain in right knee; W01.198A Fall on same level from slipping, tripping and stumbling with subsequent striking against other object, initial encounter; Y93.01 Activity, walking, marching and hiking; E11.65 Type 2 diabetes mellitus with hyperglycemia; E78.5 Hyperlipidemia, unspecified; E03.9 Hypothyroidism, unspecified; N28.9 Disorder of kidney and ureter, unspecified
CPT/HCPCS: 36415; 70450; 80053; 85025; 99284

== ENCOUNTER 2021-02-24 11:04 | Emergency (ER) | payer MEDICARE, OTHER ==
[~2021-02-24] VITALS: Ht 160 cm; Wt 49.4 kg
[~2021-02-24 11:04] MED LIST changes: +ATORVASTATIN CA10 MG; +GLIMEPIRIDE1 MG; +LEVOFLOXACIN500 MG; +LEVOTHYROXINE25 MCG
[2021-02-24] MEDS ORDERED: SODIUM CHLORIDE 0.9% 1000ML 1,000 ML IV STA (11:46)
[2021-02-24] MEDS ORDERED: ZESTRIL2.5 MG PO (14:22)
== END 2021-02-24 15:30 | disposition short-term general hospital (02) ==
LOC: FSED 11:13
DX: S06.5X0A Traumatic subdural hemorrhage without loss of consciousness, initial encounter (principal); R40.2412 Glasgow coma scale score 13-15, at arrival to emergency department; W06.XXXA Fall from bed, initial encounter; Z91.81 History of falling
CPT/HCPCS: 70450; 71045; 80053; 81003; 82553; 84484; 85025; 93005; 99284

== ENCOUNTER → 2021-03-17 | Outpatient (CLI) | payer MEDICARE ==
[~2021-03-17] MED LIST changes: +ZESTRIL2.5 MG PO
== END ==
LOC: US 09:23
PROVIDERS: ATTEND Internal Medicine Cardiovascular Disease
DX: I50.1 Left ventricular failure, unspecified (principal); I70.1 Atherosclerosis of renal artery; I15.0 Renovascular hypertension
CPT/HCPCS: 76770; 93306

== ENCOUNTER → 2021-03-18 | Outpatient (CLI) | payer MEDICARE | LOC: US 08:43 | PROVIDERS: ATTEND Internal Medicine Cardiovascular Disease | DX: I11.0 Hypertensive heart disease with heart failure (principal); N13.30 Unspecified hydronephrosis | CPT/HCPCS: 93976 ==

== ENCOUNTER → 2021-04-07 | Outpatient (CLI) | payer MEDICARE | LOC: CT 15:34 | PROVIDERS: ATTEND Nurse Practitioner | DX: S06.5X9A Traumatic subdural hemorrhage with loss of consciousness of unspecified duration, initial encounter (principal) | CPT/HCPCS: 70450 ==

== ENCOUNTER → 2021-04-26 | Outpatient (CLI) | payer MEDICARE | LOC: CT 16:02 | PROVIDERS: ATTEND Neurological Surgery | DX: S06.5X9A Traumatic subdural hemorrhage with loss of consciousness of unspecified duration, initial encounter (principal) | CPT/HCPCS: 70450 ==